=== PATIENT | female | born 1960 | race Caucasian/White ===

== ENCOUNTER 2016-11-05 11:52 | Emergency (ER) | payer OTHER ==
[2016-11-05 12:17] VITALS: BP 124/68
--- NOTE | 2016-11-05 12:43 | UC ---
Skin Complaint HPI - HPI Summary HPI Summary: she removed a small tic from left side of her back this morning---she believes the Tic was attached for only a short period of time, it was not engorged with blood, has a red spot and a bruise on her back at the attachment site she would like evaluated - History of Current Complaint Chief Complaint: UCSkin Time Seen by Provider: 11/05/16 12:42 Stated Complaint: TICK BITE Hx Obtained From: Patient Hx Last Menstrual Period: N/A ?: No Onset/Duration: Sudden Onset, Lasting Days - 1, Still Present Skin Exposure Onset/Duration: Hours Ago Timing: Constant Current Severity: Mild Pain Intensity: 3 Pain Scale Used: 0-10 Numeric Location: Discrete - left mid back Character: Redness Aggravating: Nothing Alleviating: Nothing Associated Signs & Symptoms: Positive: Negative Related History: Insect Bite/Sting - tick - Allergy/Home Medications Allergies/Adverse Reactions: Allergies Allergy/AdvReac Type Severity Reaction Status Date / Time No Known Allergies Allergy Verified 11/05/16 12:17 Home Medications: Home Medications Fluticasone Propionate (Nasal) [Sm Allergy Relief Nasal S] 50 mcg NASAL DAILY [History Confirmed 11/05/16] Gabapentin CAP(*) [Neurontin 400 mg CAP(*)] 400 mg PO TID 11/05/16 [History Confirmed 11/05/16] Sertraline* [Zoloft*] 150 mg PO DAILY 11/05/16 [History Confirmed 11/05/16] Solifenacin(NF) [Vesicare(NF)] 10 mg PO DAILY 11/05/16 [History Confirmed ] busPIRone TAB* [Buspar TAB*] 10 mg PO TID 11/05/16 [History Confirmed 11/05/16] Review of Systems Constitutional: Negative Skin: Other - red area on back with bruising at Tick site Eyes: Negative ENT: Negative Respiratory: Negative Cardiovascular: Negative Gastrointestinal: Negative Genitourinary: Negative Motor: Negative Neurovascular: Negative Musculoskeletal: Negative Neurological: Negative Psychological: Negative All Other Systems Reviewed And Are Negative: Yes PMH/Surg Hx/FS Hx/Imm Hx Previously Healthy: Yes - Surgical History Surgical History: Yes Surgery Procedure, Year, and Place: DORSAL COLUMN STIMULATOR. HYSTERECTOMY. TUBAL LIGATION - Family History Known Family History: Positive: None - Social History Occupation: Employed Full-time Lives: With Family Alcohol Use: Rare Substance Use Type: None Smoking Status (MU): Former Smoker Length of Time of Smoking/Using Tobacco: Smoked for 10 years, 1/2 ppd. Quit 25 years ago. Have You Smoked in the Last Year: No - Immunization History Most Recent Tetanus Shot: 2013 Physical Exam Triage Information Reviewed: Yes Appearance: Well-Appearing, No Pain Distress, Well-Nourished Vital Signs: Initial Vital Signs Temp 97.8 F 11/05/16 12:11 Pulse 69 11/05/16 12:11 Resp 14 11/05/16 12:11 BP 124/68 11/05/16 12:11 Pulse Ox 100 11/05/16 12:11 Vital Signs Reviewed: Yes Eye Exam: Normal Eyes: Positive: Conjunctiva Clear ENT Exam: Normal ENT: Positive: Normal ENT inspection, Hearing grossly normal, Pharynx normal, TMs normal. Negative: Nasal congestion, Nasal drainage, Tonsillar swelling, Tonsillar exudate Dental Exam: Normal Neck exam: Normal Neck: Positive: Supple, Nontender, No Lymphadenopathy Respiratory Exam: Normal Respiratory: Positive: Chest non-tender, Lungs clear, Normal breath sounds, No respiratory distress, No accessory muscle use Cardiovascular Exam: Normal Cardiovascular: Positive: RRR, No Murmur, Pulses Normal, Brisk Capillary Refill Musculoskeletal Exam: Normal Musculoskeletal: Positive: Strength Intact, ROM Intact, No Edema Neurological Exam: Normal Neurological: Positive: Alert, Muscle Tone Normal Psychological Exam: Normal Skin Exam: Normal Skin: Positive: Other - 5 mm center brown scabbing with addition 2 mm of erythema around attachment site Course/Dx - Course Course Of Treatment: soap and water wash, Lyme and Tick education provided follow with pcp for any futher sx , discomfort or flu like symptoms - Differential Diagnoses - Skin Complaint Differential Diagnoses: Cellulitis, Contact Dermatitis, Impetigo, Local Allergic Reaction, Tick Born Illness, Other - tick exposure - Diagnoses Provider Diagnoses: Tick Exposure, skin wound from Tick bite Discharge - Discharge Plan Condition: Stable Disposition: HOME Patient Education Materials: Lyme Disease (ED), Tick Bite (ED) Referrals: Angelika Henderson MD [Primary Care Provider] - 2 Weeks
== END 2016-11-05 13:00 | disposition home or self-care (01) ==
LOC: UCCORT 11:52
DX: S20.462A Insect bite (nonvenomous) of left back wall of thorax, initial encounter (principal); W57.XXXA Bitten or stung by nonvenomous insect and other nonvenomous arthropods, initial encounter; Y93.9 Activity, unspecified; Y92.9 Unspecified place or not applicable; Z87.891 Personal history of nicotine dependence
CPT/HCPCS: 99211; G0463